=== PATIENT | male | born 1975 | race African-American/Black ===

== ENCOUNTER 2024-04-12 12:21 | Emergency (ER) | payer BC ==
[2024-04-12] MEDS ORDERED: Lidocaine 1% (PF) 30 ML VIAL ONE (12:53)
[2024-04-12] MEDS ORDERED: Boostrix 0.5 ML (Tdap) VIAL (>/=7 yrs of age) ONE (13:06)
[2024-04-12] MEDS ORDERED: Bacitracin 1 PK ONE (13:32)
== END 2024-04-12 13:47 | disposition home or self-care (01) ==
LOC: ERS 12:21
DX: S81.011A Laceration without foreign body, right knee, initial encounter (principal); X58.XXXA Exposure to other specified factors, initial encounter; Y93.89 Activity, other specified; Z23 Encounter for immunization
CPT/HCPCS: 12002; 90471; 90715